=== PATIENT | female | born 1985 | race Caucasian/White ===

== ENCOUNTER 2018-04-14 15:32 | Outpatient (CLI) | payer MEDICAID ==
[~2018-04-14] VITALS: Ht 165.1 cm; Wt 55.8 kg
[2018-04-14 15:13] VITALS: BP 167/80
[2018-04-14 16:19] LABS: BILIRUBIN,URINE NEGATIVE (NEGATIVE); CLARITY,URINE SLIGHTLY CLOUDY; COLOR,URINE YELLOW; GLUCOSE, URINE (UA) NEGATIVE (NEGATIVE); KETONES,URINE 2+ (NEGATIVE); LEUKOCYTE ESTERASE ,URINE 1+ (NEGATIVE); NITRITE,URINE NEGATIVE (NEGATIVE); PH,URINE 7 (5-9); PROTEIN,URINE NEGATIVE (NEGATIVE); UROBILINOGEN,URINE NORMAL (NORMAL)
[2018-04-14 16:20] LABS: WBC,URINE 0-2 /HPF
[2018-04-14 16:57] LABS: AMPHETAMINE SCREEN, URINE NEGATIVE (NEGATIVE); BARBITURATE SCREEN URINE NEGATIVE (NEGATIVE); BENZODIAZEPINES SCREEN URINE POSITIVE (NEGATIVE); CANNABINOID SCREEN, URINE NEGATIVE (NEGATIVE); COCAINE SCREEN URINE NEGATIVE (NEGATIVE); METHADONE STAT NEGATIVE (NEGATIVE); METHAMPHETAMINE SCREEN URINE S NEGATIVE (NEGATIVE); OPIATE SCREEN URINE NEGATIVE (NEGATIVE); OXYCODONE STAT NEGATIVE (NEGATIVE); PROPOXYPHENE STAT NEGATIVE (NEGATIVE); TRICYCLIC ANTIDEPRESSANTS SCRE NEGATIVE (NEGATIVE)
[2018-04-14] MEDS ORDERED: FLU QUADRIvalent (5+ YOA) 2018-2019 (AFLURIA) 0.5 ML IM ONE (17:00)
[2018-04-14] MEDS ORDERED: ALPRAZolam 0.5 MG (XANAX) TAB PO PRN (17:15)
[2018-04-15] MEDS ORDERED: PRENATAL VITAMIN 1 EA TAB PO SCH (07:00)
--- NOTE | 2018-04-20 09:34 | Physician Query-Final Dx ---
TAMRA DEL VALLE 04/20/18 0934: Clinic Account Progress/Dx Physician Query: Please give a diagnosis and include the weeks of gestation if known thank you Date of Service Apr 14, 2018 at 15:32 WAGNER CADENA DO 04/20/18 1025: Clinic Account Progress/Dx DIAGNOSIS: Diagnosis 35 week IUP, Leaking of vaginal fluid TAMRA DEL VALLE Apr 20, 2018 09:34 WAGNER CADENA DO Apr 20, 2018 10:25
== END 2018-04-14 17:12 | disposition home or self-care (01) ==
LOC: RAD 15:32 → LDRP 15:35 → RAD 17:12
PROVIDERS: ATTEND Obstetrics & Gynecology
DX: O99.89 Other specified diseases and conditions complicating pregnancy, childbirth and the puerperium (principal); N89.8 Other specified noninflammatory disorders of vagina; Z3A.35 35 weeks gestation of pregnancy
CPT/HCPCS: 80306; 81000; 87088; 99213

== ENCOUNTER 2018-05-09 10:13 | Inpatient (IN) | payer MEDICAID ==
[~2018-05-09] VITALS: Ht 165.1 cm; Wt 55.8 kg
[2018-05-09] VITALS (49 sets, daily range): BP systolic 106–161; BP diastolic 68–97
[2018-05-09] MEDS ORDERED: D5 LR IV SOLUTION 1,000 ML IV ONE (10:41)
[2018-05-09] MEDS ORDERED: MINERAL OIL CONCENTRATE 99.9% 15 ML UDC TOP PRN (10:45)
[2018-05-09] MEDS ORDERED: LIDOCAINE 1% INJ 20 ML 20 ML VIAL INJ PRN (10:45)
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
--- OUTSIDE RECORDS SUMMARY | 2018-05-09 10:56 | XMS REPORT | CCD ---
Author Author VAUGHN CLIFTON Organization Unknown Address [address] [facility] [address] [place], [place] [address] Care Team Providers Care Home Health Clinical Liaison Name Role Phone GISELLE ZABALA, WAGNER Gambino [...] Start Date Did not wait for treatment [id number] 05/04/2015 Social History Smoking Status Code Start Date End Date Current every day smoker 793102586 Patient Decision Aids Unknown or Not Available. Discharge Instructions You were admitted to [facility] on 05/04/2015 with a principal diagnosis of Did not wait for treatment . You were discharged from [facility] on 05/04/2015. Should you have any [...]
--- OUTSIDE RECORDS SUMMARY | 2018-05-09 10:56 | XMS REPORT | CCD ---
Author Author JENNY CELAYA Unknown Address [address] [facility] [place], [place] [address] Care Team Providers Care Permit Review Assistant Name Role Phone GISELLE ZABALA, WAGNER Maurice Attphyfabiano GISELLE ZABALA, WAGNER Ferreira Vital Signs Unknown or Not Available. Allergies Allergy Code Allergy Type Reaction Status No Known Allergies 0 No known allergies Active Procedures Procedure Code Procedure Type Date CBC W/ AUTO DIFF (RFLX MAN DIFF IF IND) 3022731 SNOMED CT 12/12/2014 COMPREHENSIVE METABOLIC PANEL 081289295 SNOMED CT [address] 12/12/[address] 12/12/[address] 12/12/[address] 12/12/2014 ^CBC W/AUTO DIFF 1236738 SNOMED CT 12/12/2014 History of Immunizations Unknown or Not Available. Problems Unknown or Not Available. Results COMPREHENSIVE METABOLIC PANEL - Collect Date/Time: 12/12/2014 21:25 Test Name Code Test Result Test Units Test Ref Range GLUCOSE 2345-7 90 MG/DL L=70 H=100 SODIUM 2951-2 141 MEQ/L L=135 H=148 POTASSIUM 2823-3 3.4 MEQ/L L=3.5 H=5.3 CHLORIDE 2075-0 105 MEQ/L L=96 H=110 CO2 2028-9 21 MEQ/L L=22 H=29 BUN 3094-0 5 MG/DL L=8 H=22 CREATININE 2160-0 0.7 MG/DL L=0.6 H=1.6 SGOT/AST 1920-8 47 IU/L L=10 H=40 SGPT/ALT 1742-6 26 IU/L L=8 H=54 ALK PHOS 6768-6 113 IU/L L=35 H=115 TOTAL PROTEIN 2885-2 7.6 G/DL L=5.5 H=8.5 ALBUMIN 1751-7 4.1 G/DL L=3.1 H=5.4 TOTAL BILI 1975-2 1.6 MG/DL L=0.0 H=1.5 CALCIUM 95420-7 9.5 MG/DL L=8.2 H=10.6 AGE 29 yrs GFR NonAA 100 GFR AA 121 eGFR >60 N/A eGFR AA* >60 N/A LIPASE - Collect Date/Time: 12/12/2014 21:25 Test Name Code Test Result Test Units Test Ref Range LIPASE 3040-3 13 U/L L=8 H=78 ALCOHOL - Collect Date/Time: 12/12/2014 21:25 Test Name Code Test Result Test Units Test Ref Range ETHANOL 5640-8 <10 MG/DL CBC W/ AUTO DIFF (RFLX MAN DIFF IF IND) - Collect Date/Time: 12/12/2014 21:25 Test Name Code Test Result Test Units Test Ref Range WBC 77045-3 10.2 TH/CMM L=4.5 H=10.8 RBC 789-8 5.42 ML/CMM L=4.20 H=5.40 HGB 718-7 16.9 G/DL L=12.0 H=16.0 HCT 4544-3 48.9 % L=37.0 H=47.0 MCV 90 FL L=81 H=99 MCH 31.2 PG L=27.0 H=33.0 MCHC 34.6 G/DL L=31.0 H=36.0 RDW SD 53 FL L=36 H=50 RDW CV 16.6 % L=0.0 H=14.8 MPV 9.7 FL L=9.3 H=12.5 PLT 777-3 132 TH/CMM L=130 H=440 NRBC# 0.00 TH/CMM L=0.00 H=0.00 NRBC% 0.0 /100WBC L=0.0 H=2.0 %NEUT 78.6 % %LYMP 11.3 % %MONO 9.2 % %EOS 0.7 % %BASO 0.2 % #NEUT 8.00 TH/CMM L=2.10 H=8.20 #LYMP 1.15 TH/CMM L=0.90 H=5.20 #MONO 0.94 TH/CMM L=0.16 H=1.00 #EOS 0.07 TH/CMM L=0.00 H=0.80 #BASO 0.02 TH/CMM L=0.00 H=0.20 MANUAL DIFF NOT IND N/A TEST - Collect Date/Time: 12/12/2014 21:25 Test Name Code Test Result Test Units Test Ref Range TEST 2118-8 NEGATIVE N/A AMYLASE - Collect Date/Time: 12/12/2014 21:25 Test Name Code Test Result Test Units Test Ref Range AMYLASE 1798-8 35 IU/L L=25 H=125 Active Medications Unknown or Not Available. Medications Administered During Visit Unknown or Not Available. Encounters Encounter Diagnosis Diagnosis Code Start Date VOMITING ALONE 15235 12/12/2014 Social History Smoking Status Code Start Date End Date Current every day smoker [id number] Patient Decision Aids Unknown or Not Available. Discharge Instructions You were admitted to [facility] on 12/12/2014 with a principal diagnosis of VOMITING ALONE. You were discharged from [facility] on 12/12/2014. Should you have any questions prior to discharge, please contact a member of your healthcare team. If you have left the hospital and have any questions, please contact your primary care physician. Chief Complaint and Reason For Visit Chief Complaint Date of Onset CHEST PAIN Function Status Unknown or Not Available. Referral/Transition of Care Unknown or Not Available.
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
--- OUTSIDE RECORDS SUMMARY | 2018-05-09 10:58 | XMS REPORT ---
Author Author Modesto Flores [facility] Address [address] [place], [place] [id number] Care Team Providers Care Duplicator Punch Operator Name Role Phone Mdoesto Flores PCP Modesto Flores PreferredProvider Allergies and Adverse Reactions Name Reaction Notes NO KNOWN DRUG ALLERGIES Plan of Treatment Planned Activity Comments Planned Date Planned Time Plan/Goal CMP 08/03/2017 12:00 AM Medications Active Name Start Date Estimated Completion Date SIG Comments alprazolam 0.25 mg oral tablet 07/20/2017 take 1 tablet (0.25 mg) by oral [...] HC BMI BSA BMI Percentile O2 Sat(%) 07/20/2017 10:26:00 AM 102 mmHg 60 mmHg 75 bpm 16 rpm 98.7 F 114 lbs 65 in 18.97 kg/m2 1.54 m2 99 % 02/27/2015 10:59:00 AM 168 mmHg 90 mmHg 155 bpm 22 rpm 100 lbs 65 in 16.6407 kg/m 1.4423 m 98 % 09/10/2014 2:40:00 PM 122 mmHg 60 mmHg 112 bpm 20 rpm 98 F 105 lbs 65 in 17.47 kg/m2 1.48 m2 100 % 07/17/2014 9:59:00 AM 118 mmHg 74 mmHg 77 bpm 18 rpm 96.3 F 107.125 lbs 65 in 17.8263 kg/m 1.4928 m 100 % 10/05/2013 9:52:00 AM 123 mmHg 68 mmHg 102 bpm 96.4 F 114 lbs 65 in 18.97 kg/m2 1.54 m2 10/04/2013 10:57:00 AM 111 mmHg 75 mmHg 86 bpm 18 rpm 97.6 F 112 lbs 65 in 18.6376 kg/m 1.5264 m 05/21/2010 8:56:00 AM 121 mmHg 81 mmHg 84 bpm 99 F 106.375 lbs 01/05/2010 4:17:00 PM 102 mmHg 74 mmHg 83 bpm 98.9 F 108.5 lbs 65 in 18.0552 kg/m 1.5024 m Social History Name Description Comments denies alcohol use Tobacco Current every day smoker trying to stop History of Procedures Date Ordered Description Order Status 02/27/2015 12:00 AM Psychiatry Consult Reviewed 02/27/2015 12:00 AM RADIOLOGIC EXAMINATION KNEE 3 VIEWS Reviewed 10/04/2013 12:00 AM URINE TEST Reviewed [...] ABO/Rh Type A Positive Antibody Screen-Gel Negative History Of Immunizations Not available. History of [...] 10:28AM Alcohol abuse Jul 20 2017 10:28AM Payers Insurance Name Company Name Plan Name Plan Number Policy Number Policy Group Number Start Date [place] Medical Assistance [facility] Pro [id number] N/A Childrens [facility] Childrens [facility] [id number] N/A History of Encounters Visit Date Visit Type Provider 07/20/2017 Office visit Modesto Flores DO 07/08/2017 [facility] Ej Rivera MD 05/09/2015 [facility] Prosper Cortes MD 02/27/2015 Office visit Modesto Flores DO 12/12/2014 [facility] Prosper Cortes MD 09/10/2014 Office visit 09/10/2014 Office visit Modesto Flores DO 07/17/2014 Office visit Modesto Flores DO 07/10/2014 [facility] Prosper Cortes MD 10/05/2013 Office visit Jet Biggs MD 10/04/2013 Voided Jet Biggs MD 06/24/2012 Hospital Prosper Cortes MD 05/21/2010 Office visit Fly Davenport MD 03/23/2010 [facility] Fly Davenport MD 03/10/2010 Office visit Fly Davenport MD 03/02/2010 Office visit Fly Davenport MD 02/25/2010 Office visit Fly Davenport MD 02/23/2010 Office visit Fly Davenport MD 01/27/2010 Office visit Fly Davenport MD 01/12/2010 Office visit Fly Davenport MD 01/05/2010 Office visit Fly Davenport MD
--- OUTSIDE RECORDS SUMMARY | 2018-05-09 10:58 | XMS REPORT ---
Author Author Modesto Flores [facility] Address [address] [place], [place] [id number] Care Team Providers Care Acoustical Carpenter Name Role Phone Modesto Flores PCP Modesto Flores PreferredProvider Allergies and Adverse Reactions Name Reaction Notes NO KNOWN DRUG ALLERGIES Plan of Treatment Not available. Medications Active Name Start Date Estimated Completion Date SIG Comments sertraline 50 mg oral tablet 10/03/2017 take 1 tablet by oral route daily alprazolam 0.5 mg oral tablet 11/29/2017 take 1 tablet (0.5 mg) by oral route 2 times per day as needed Name Start Date Expiration Date SIG Comments Neevo DHA 27 mg iron-400 mcg-1 mg-250 mg oral capsule 01/27/2010 01/22/2011 take 1 capsule by oral route daily for 30 days Depo-Provera 150 mg/mL intramuscular suspension 05/21/2010 05/25/2010 inject 1 milliliter (150 mg) by intramuscular route every 3 months for 1 day clindamycin HCl 300 mg oral capsule 10/14/2017 10/21/2017 take 1 capsule (300 mg) by oral route 2 times per day for 7 days amoxicillin-pot clavulanate 875-125 mg oral tablet 10/20/2017 10/27/2017 take 1 tablet by oral route every 12 hours for 7 days Discontinued Name Start Date Discontinued Date SIG [...] HC BMI BSA BMI Percentile O2 Sat(%) 10/20/2017 10:12:00 AM 110 mmHg 62 mmHg 88 bpm 20 rpm 98.8 F 116 lbs 65 in 19.3032 kg/m 1.5534 m 100 % 09/07/2017 8:50:00 AM 116 mmHg 76 mmHg 94 bpm 20 rpm 98.1 F 117 lbs 65 in 19.47 kg/m2 1.56 m2 98 % 08/18/2017 8:50:00 AM 122 mmHg 80 mmHg [...] 2017 10:28AM Anxiety Aug 18 2017 8:52AM Anxiety Disorder Sep 07 2017 8:52AM Herpes zoster without complication Sep 07 2017 8:52AM Dental abscess Oct 20 2017 10:14AM Payers Insurance Name Company Name Plan Name Plan Number Policy Number Policy Group Number Start Date Amerigroup [place] State [place] Amerigroup [place] Plan [id number] N/A [place] Medical Assistance [facility] Medical [facility] Prog [id number] N/A Childrens [facility] Childrens [facility] [place] [id number] N/A [employer] - [facility] - [place] State Plan Amerigroup - [facility] State Plan [id number] N/A History of Encounters Visit Date Visit Type Provider 10/20/2017 Office visit Modesto Flores DO 09/07/2017 Office visit Modetso Flores DO 08/18/2017 Office visit Modesto Flores DO 07/20/2017 Office visit Modesto Flores DO 07/08/2017 [facility] Ej Rivera MD 07/06/2017 Hospital Prosper Cortes MD 05/09/2015 Hospital Prosper Cortes MD 02/27/2015 Office visit Modesto Flores DO 12/12/2014 Hospital Prosper Cortes MD 09/10/2014 Office visit 09/10/2014 Office visit Modesto Flores DO 07/17/2014 Office visit Modesto Flores DO 07/10/2014 Can Cortes MD 10/05/2013 Office visit Jet Biggs MD 10/04/2013 Voided Jet Biggs MD 06/24/2012 [facility] Prosper Cortes MD 05/21/2010 Office visit Fly Davenport MD 03/23/2010 [facility] Fly Davenport MD 03/10/2010 Office visit Fly Davenport MD 03/02/2010 Office visit Fly Davenport MD 02/25/2010 Office visit Fly Davenport MD 02/23/2010 Office visit Fly Davenport MD 01/27/2010 Office visit Fly Davenport MD 01/12/2010 Office visit Fly Davenport MD 01/05/2010 Office visit Fly Davenport MD
--- OUTSIDE RECORDS SUMMARY | 2018-05-09 10:59 | XMS REPORT ---
Author Author Modesto Flores [facility] Address [address] [place], [place] [id number] Care Team Providers Care Nuclear Reactor Operator Name Role Phone Modesto Flores PCP Modesto Flores PreferredProvider Allergies and Adverse Reactions Name Reaction Notes NO KNOWN DRUG ALLERGIES Plan of Treatment Not available. Medications Active Name Start Date Estimated Completion Date SIG Comments sertraline 50 mg oral tablet 10/03/2017 take 1 tablet by oral route daily alprazolam 0.5 mg oral tablet 11/04/2017 take 1 tablet (0.5 mg) by oral [...] Number Policy Group Number Start Date [employer] [place] [place] [id number] N/A [place] Medical Assistance [facility] Prog [id number] N/A Children[facility] [id number] N/A Amer[employer] - [facility] - [place] State Plan Amerigroup - [facility] State Plan [id number] N/A History of Encounters Visit Date Visit Type Provider 10/20/2017 Office visit Modesto Flores DO 09/07/2017 Office visit Modesto Flores DO 08/18/2017 Office visit Modesto Flores DO 07/20/2017 Office visit Modesto Flores DO 07/08/2017 [facility] Ej Rivera MD 07/06/2017 Hospital Prosper Cortes MD 05/09/2015 Hospital rPosper Cortes MD 02/27/2015 Office visit Modesto Flores DO 12/12/2014 Hospital Prosper Cortes MD 09/10/2014 Office visit 09/10/2014 Office visit Modesto Flores DO 07/17/2014 Office visit Modesto Flores DO 07/10/2014 Can Cortes MD 10/05/2013 Office visit Jet Biggs MD 10/04/2013 Voided Jet Biggs MD 06/24/2012 [facility] Prosper Cortes MD 05/21/2010 Office visit Fly Davenport MD 03/23/2010 [facility] Fly Davenport MD 03/10/2010 Office visit Fly Davenport MD 03/02/2010 Office visit Fly Davenport MD 02/25/2010 Office visit Fly Davenport MD 02/23/2010 Office visit Fly Davenport MD 01/27/2010 Office visit Fly Davenport MD 01/12/2010 Office visit Fly Davenport MD 01/05/2010 Office visit Fly Davenport MD
--- OUTSIDE RECORDS SUMMARY | 2018-05-09 10:59 | XMS REPORT ---
Author Author Modesto Flores [facility] Address [address] [place], [place] [id number] Care Team Providers Care Air Bag Curer Name Role Phone Modesto Flores PCP Modesto Flores PreferredProvider Allergies and Adverse Reactions Name Reaction Notes NO KNOWN DRUG ALLERGIES Plan of Treatment Not available. Medications Active Name Start Date Estimated Completion Date SIG Comments sertraline 50 mg oral tablet 10/03/2017 take 1 tablet by oral route daily alprazolam 0.5 mg oral tablet 10/03/2017 take 1 tablet (0.5 mg) by oral route 2 times per day as needed clindamycin HCl 300 mg oral capsule 10/14/2017 10/21/2017 take 1 capsule (300 mg) by oral route 2 times per day for 7 days Name Start Date Expiration Date SIG Comments [...] HC BMI BSA BMI Percentile O2 Sat(%) 09/07/2017 8:50:00 AM 116 mmHg 76 mmHg 94 bpm 20 rpm 98.1 F 117 lbs 65 in 19.4696 kg/m 1.5601 m 98 % 08/18/2017 8:50:00 AM 122 mmHg [...] zoster without complication Sep 07 2017 8:52AM Payers Insurance Name Company Name Plan Name Plan Number Policy Number Policy Group Number Start Date Amerigroup [place] State Plan Amerigroup [place] State Plan [id number] N/A [place] Medical Assistance Program [place] Prog [id number] N/A [facility] [id number] N/A Amer[employer] - [facility] - [place] State Plan Amerigroup - [facility] State [facility] [id number] N/A History of Encounters Visit Date Visit Type Provider 09/07/2017 Office visit Modesto Flores DO 08/18/2017 Office visit Modesto Flores DO 07/20/2017 Office visit Modesto Flores DO 07/08/2017 [facility] Ej Rivera MD 07/06/2017 Hospital Prospre Cortes MD 05/09/2015 [facility] Prosper Cortes MD 02/27/2015 Office visit Modesto Flores DO 12/12/2014 [facility] Prosper Cortes MD 09/10/2014 Office visit 09/10/2014 Office visit Modesto Flores DO 07/17/2014 Office visit Modesto Flores DO 07/10/2014 Hospital Prosper Cortes MD 10/05/2013 Office visit Jet Biggs MD 10/04/2013 Voided Jet Biggs MD 06/24/2012 Hospital Prosper Cortes MD 05/21/2010 Office visit Fly Davenport MD 03/23/2010 [facility] Fly Davenport MD 03/10/2010 Office visit Fly Davenport MD 03/02/2010 Office visit Fly Davenport MD 02/25/2010 Office visit Fly Davenport MD 02/23/2010 Office visit Fly Davenport MD 01/27/2010 Office visit Fly Davenport MD 01/12/2010 Office visit Fly Davenport MD 01/05/2010 Office visit Fly Davenport MD
--- OUTSIDE RECORDS SUMMARY | 2018-05-09 11:00 | XMS REPORT ---
Author Author Modesto Flores [facility] Address [address] [place], [place] [id number] Care Team Providers Care Straw Hat Plunger Operator Name Role Phone Modesto Flores PCP Modesto Flores PreferredProvider Allergies and Adverse Reactions Name Reaction Notes NO KNOWN DRUG ALLERGIES Plan of Treatment Not available. Medications Active Name Start Date Estimated Completion Date SIG Comments sertraline 50 mg oral tablet 09/07/2017 take 1/2 tablet (25 mg) by oral route once daily for 6 days then 1 tablet daily alprazolam 0.5 mg oral tablet 09/07/2017 take 1 tablet (0.5 mg) by oral [...] Number Policy Group Number Start Date [employer] [place] State [facility] [id number] N/A [place] Medical Assistance Program [place] Prog [id number] N/A Childrens [facility] Childrens [facility] [id number] N/A [employer] - [facility] - [place] State [facility] State [facility] [id number] N/A History of Encounters Visit Date Visit Type Provider 09/07/2017 Office visit Modesto Flores DO 08/18/2017 Office visit Modesto Flores DO 07/20/2017 Office visit Modesto Flores DO 07/08/2017 [facility] Ej Rivera MD 07/06/2017 [facility] Prosper Cortes MD 05/09/2015 [facility] Prosper Cortes MD 02/27/2015 Office visit Modesto Flores DO 12/12/2014 Hospital Prosper Cortes MD 09/10/2014 Office visit 09/10/2014 Office visit Modesto Flores DO 07/17/2014 Office visit Modesto Flores DO 07/10/2014 Hospital Prosper Cortes MD 10/05/2013 Office visit Jet Biggs MD 10/04/2013 Voided Jet Biggs MD 06/24/2012 Hospital Prosper Cortes MD 05/21/2010 Office visit Fly Davenport MD 03/23/2010 Hospital Fly Davenport MD 03/10/2010 Office visit Fly Davenport MD 03/02/2010 Office visit Fly Davenport MD 02/25/2010 Office visit Fly Davenport MD 02/23/2010 Office visit Fly Davenport MD 01/27/2010 Office visit Fly Davenport MD 01/12/2010 Office visit Fly Davenport MD 01/05/2010 Office visit Fly Davenport MD
--- OUTSIDE RECORDS SUMMARY | 2018-05-09 11:00 | XMS REPORT ---
Author Author Modesto Flores [facility] Address [address] [place], [place] [address] Care Team Providers Care Clay Dry Press Mixer Operator Name Role Phone Modesto Flores PCP [...] 08/03/2017 12:00 AM COMPREHEN METABOLIC PANEL Reviewed 10/04/2013 [...] AA 102 eGFR >60 mL/min/1.73meGFR AA* >60 History Of Immunizations Not [...] Policy Number Policy Group Number Start Date [place] Medical Assistance [facility] Medical [place] [facility] Prog [id number] N/[facility] [id number] N/A History of Encounters Visit Date Visit Type Provider 07/20/2017 Office visit Modesto Flores DO 07/08/2017 Hospital Ej Rivera MD 07/06/2017 Can Cortes MD 05/09/2015 Can Cortes MD 02/27/2015 Office visit Modesto Flores DO 12/12/2014 Can Cortes MD 09/10/2014 Office visit 09/10/2014 Office visit Modesto Flores DO 07/17/2014 Office visit Modesto Flores DO 07/10/2014 Can Cortes MD 10/05/2013 Office visit Jet Biggs MD 10/04/2013 Voided eJt Biggs MD 06/24/2012 [facility] Prosper Cortes MD 05/21/2010 Office visit Fly Davenport MD 03/23/2010 [facility] Fly Davenport MD 03/10/2010 Office visit Fly Davenport MD 03/02/2010 Office visit Fly Davenport MD 02/25/2010 Office visit Fly Davenport MD 02/23/2010 Office visit Fly Davenport MD 01/27/2010 Office visit Fly Davenport MD 01/12/2010 Office visit Fly Davenport MD 01/05/2010 Office visit Fly Davenport MD
--- OUTSIDE RECORDS SUMMARY | 2018-05-09 11:00 | XMS REPORT ---
Author Author Modesto Flores [facility] Address [address] [place], [place] [address] Care Team Providers Care Cupola Hoist Operator Name Role Phone Modesto Flores PCP [...] route 2 times per day as needed amoxicillin-pot clavulanate 875-125 mg oral tablet 10/20/2017 10/27/2017 take 1 tablet by oral route every 12 hours for 7 days Name Start Date Expiration [...] 2 times per day for 7 days Discontinued Name Start Date [...] Number Policy Group Number Start Date [employer] [place] [employer] [place] [id number] N/A [place] Medical Assistance [facility] Medical [facility] Prog [id number] N/A Childrens [facility] Childrens [facility] [id number] N/A [employer] - [facility] [place] State Plan [employer] - [facility] State Plan [id number] N/A History of Encounters Visit Date Visit Type Provider 10/20/2017 Office visit Modesto Flores DO 09/07/2017 Office visit Modesto Flores DO 08/18/2017 Office visit Modesto Flores DO 07/20/2017 Office visit Modesto Flores DO 07/08/2017 [facility] Ej Rivera MD 07/06/2017 Hospital Prosper Cortes MD 05/09/2015 Hospital Prosper Cortes MD 02/27/2015 Office visit Modesto Flores DO 12/12/2014 Hospital Prosper Cortes MD 09/10/2014 Office visit 09/10/2014 Office visit Modesto Flores DO 07/17/2014 Office visit Modesto Flores DO 07/10/2014 Can Cortes MD 10/05/2013 Office visit Jet Biggs MD 10/04/2013 Voided Jet Biggs MD 06/24/2012 [facility] Prosper Cortes MD 05/21/2010 Office visit Fly Davenport MD 03/23/2010 [facility] Fly Davenport MD 03/10/2010 Office visit Fly Davenport MD 03/02/2010 Office visit Fly Davenport MD 02/25/2010 Office visit Fly Davenport MD 02/23/2010 Office visit Fly Davenport MD 01/27/2010 Office visit Fly Davenport MD 01/12/2010 Office visit Fly Davenport MD 01/05/2010 Office visit Fly Davenport MD
--- OUTSIDE RECORDS SUMMARY | 2018-05-09 11:01 | XMS REPORT ---
Author Author Modesto Flores [facility] Address [address] [place], [place] [address] Care Team Providers Care Voicer Name Role Phone Modesto Flores PCP Modesto [...] Plan [employer] - [facility] [place] State Plan [id number] N/A [place] Medical Assistance [facility] Medical Assistance Pro [id number] N/A [employer] [place] [facility] [id number] N/A History of Encounters Visit Date Visit [...] 05/21/2010 Office visit Fly Davenport MD 03/23/2010 [facility] Fly Davenport MD 03/10/2010 Office visit Fly Davenport MD 03/02/2010 Office visit Fly Davenport MD 02/25/2010 Office visit Fly Davenport MD 02/23/2010 Office visit Fly Davenport MD 01/27/2010 Office visit Fly Davenport MD 01/12/2010 Office visit Fly Davenport MD 01/05/2010 Office visit Fly Davenport MD
--- OUTSIDE RECORDS SUMMARY | 2018-05-09 11:02 | XMS REPORT ---
Author Author Modesto Flores [facility] Address [address] [place], [place] [address] Care Team Providers Care Translational Specialist Name Role Phone Modesto Flores PCP Modesto [...] Number Policy Group Number Start Date [employer] [place] [employer] [place] [id number] N/A [place] Medical Assistance [facility] Prog [id number] N/A Childrens [facility] [id number] N/A [employer] - [facility] - [place] State Plan [employer] - [facility] [place] State [facility] [id number] N/A History of Encounters Visit Date Visit Type Provider 09/07/2017 Office visit Modesto Flores DO 08/18/2017 Office visit Modesto Flores DO 07/20/2017 Office visit Modesto Flores DO 07/08/2017 [facility] Ej Rivera MD 07/06/2017 Hospital Prosper Cortes MD 05/09/2015 [facility] Prosper Cortes MD 02/27/2015 Office visit [...]
--- OUTSIDE RECORDS SUMMARY | 2018-05-09 11:03 | XMS REPORT ---
Author Author Modesto Flores [facility] Address [address] [place], [place] [address] Care Team Providers Care Energy Analyst Name Role Phone Modesto Flores PCP Unavailable Allergies and Adverse Reactions Name Reaction Notes NO KNOWN DRUG ALLERGIES Plan of Treatment Planned Activity Comments Planned Date Planned Time Plan/Goal LOWER EXTREMITY STUDY 09/10/2014 12:00 AM Medications Active Name Start Date Estimated Completion Date SIG Comments zolpidem 5 mg oral tablet 02/27/2015 take 1 tablet by oral route once a day (at bedtime) as needed clonazepam 1 mg oral tablet 02/27/2015 take 1 tablet (1 mg) by oral route 3 times per day as needed for anxiety Name Start Date Expiration Date SIG Comments [...] "ran out of it, it didn't work" Problem List Description Status Onset Anxiety Active 09/14/2014 Alcohol abuse Active 09/14/2014 Vital Signs Date Time BP-Sys(mm[Hg] BP-Nichole(mm[Hg]) HR(bpm) RR(rpm) Temp WT HT HC BMI BSA BMI Percentile O2 Sat(%) 02/27/2015 10:59:00 AM 168 mmHg 90 mmHg [...] Ordered Description Order Status 02/27/2015 12:00 AM RADIOLOGIC EXAMINATION KNEE 3 VIEWS Reviewed 10/04/2013 12:00 AM URINE TEST Reviewed 10/04/2013 12:00 AM HIV-1ANTIBODY Reviewed 10/04/2013 12:00 AM OBSTETRIC PANEL Returned 10/04/2013 12:00 AM URINALYSIS AUTO W/SCOPE Returned 10/05/2013 12:00 AM N.GONORRHOEAE DNA AMP PROB Returned 10/05/2013 12:00 AM CHLAMYDIA CULTURE Returned 10/05/2013 12:00 AM OBSTETRIC PANEL Returned 10/05/2013 12:00 AM HIV-1ANTIBODY Returned 10/05/2013 12:00 AM URINALYSIS AUTO W/SCOPE Returned 10/05/2013 12:00 AM US, preg, real time w image documentation, transvag - In Office Returned 10/05/2013 12:00 AM CYTOPATH C/V THIN LAYER [...] AM SPECIMEN HANDLING OFFICE-LAB Reviewed Results Summary Data and Description Results 01/06/2010 2:45 PM RUBELLA 31.0 IU/mLWBC 11.8 PLT 133 %NEUT 76.10 %%LYMP 17.40 %%MONO 5.0 %%EOS 1.40 %%BASO 0.10 %#NEUT 8.95 #LYMP 2.04 #MONO 0.59 #EOS 0.16 # BASO 0.01 RBC 3.64 HGB 11.30 g/dLHCT 32.90 %MCV 90.0 fLMCH 31.0 pgMCHC 34.30 g/ dLRDW CV 13.70 %MPV 10.70 fLCOLOR YELLOW APPEARANCE HAZY SPEC GRAV 1.015 pH 8.5 PROTEIN NEGATIVE GLUCOSE NEGATIVE KETONE NEGATIVE BILIRUBIN NEGATIVE BLOOD NEGATIVE NITRITE NEGATIVE LEUK SCREEN NEGATIVE CASTS/LPF NEGATIVE CRYSTALS NEGATIVE MUCOUS THRDS 1+ BACTERIA 1+ EPITH CELLS 2++ SQUAMOUS TRICHOMONAS NEGATIVE YEAST NEGATIVE 10/04/2013 12:15 PM WBC 9.9 RBC 4.39 HGB 13.70 g/dLHCT 38.90 %MCV 89.0 fLMCH 31.20 pgMCHC 35.20 g/dLRDW CV 13.50 %MPV 10.50 fLPLT 173 %NEUT 71.0 %%LYMP 23.0 %%MONO 4.20 %%EOS 1.60 %%BASO 0.20 %#NEUT 6.99 #LYMP 2.27 #MONO 0.41 #EOS 0.16 # BASO 0.02 HIV AG/AB COMBO 0.09 COLOR YELLOW APPEARANCE HAZY SPEC GRAV 1.020 pH 6.0 PROTEIN NEGATIVE GLUCOSE NEGATIVE KETONE NEGATIVE BILIRUBIN NEGATIVE BLOOD NEGATIVE NITRITE NEGATIVE LEUK SCREEN NEGATIVE CASTS/LPF NEGATIVE CRYSTALS NEGATIVE MUCOUS THRDS FEW BACTERIA NEGATIVE EPITH CELLS 1+ SQUAMOUS TRICHOMONAS NEGATIVE YEAST NEGATIVE ABO/Rh Type A Positive RPR Non Reactive Rubella Antibodies, IgG 3.33 IndexHBsAg Screen Negative History Of Immunizations Not available. History of Past Illness Name Date of Onset Comments *No known medical problems Jan 05 2010 4:30PM test confirmed positive [...] 2015 11:01AM Anxiety Feb 27 2015 11:01AM Payers Insurance Name Company Name Plan Name Plan Number Policy Number Policy Group Number Start Date [place] Medical Assistance [facility] Medical [facility] Prog [id number] N[facility]A [facility] [id number] N/A History of Encounters Visit Date Visit Type Provider 02/27/2015 Office visit Modesto Flores DO 12/12/2014 Hospital Prosper Cortes MD 09/10/2014 Office visit Modesto Sandra DO 07/17/2014 Office visit Modesto Flores DO 07/10/2014 Hospital Prosper Cortes MD 10/05/2013 Office visit Jet Biggs MD 10/04/2013 Voided Jet Biggs MD 06/24/2012 [facility] Prosper Cortes MD 05/21/2010 Office visit Fly Davenport MD 03/23/2010 [facility] Fly Davenport MD 03/10/2010 Office visit Fly Davenport MD 03/02/2010 Office visit Fly Davenport MD 02/25/2010 Office visit Fly Davenport MD 02/23/2010 Office visit Fly Davenport MD 01/27/2010 Office visit Fly Davenport MD 01/12/2010 Office visit Fly Davenport MD 01/05/2010 Office visit Fly Davenport MD
--- OUTSIDE RECORDS SUMMARY | 2018-05-09 11:05 | XMS REPORT ---
Author Author MICHAEL JETT Organization [employer] Address Unknown Phone Unavailable Care Team Providers Care Mobile Homes Repairer Name Role Phone MICHAEL JETT CP Unavailable Allergies, Adverse Reactions, Alerts Substance Reaction Event Type N.K.D.A. Info Not Available Non Drug Allergy Problems Problem Type Condition Code Onset Dates Condition Status Assessment Tinea versicolor B36.0 Active Assessment Generalized anxiety disorder F41.1 Active Medications Medication Code System Code Instructions Start Date End Date Status Dosage Terbinafine [facility] [address]-40 1 % Externally 2 times a day Feb 03, 2016 as directed Fluconazole [facility] [address]-53 200 mg Orally Once a day Feb 03, 2016 Mar 04, 2016 1 tablet Paxil [facility] [address]-43 40 mg Orally Once a day Feb 03, 2016 1 tablet in the morning Vistaril [facility] [address]-83 25 MG Orally every 8 hrs Feb 03, 2016 1 capsule as needed Xanax [facility] [address]-73 0.5 MG Orally Once a day 1 tablet Procedures Procedure Coding System Code Date Office Visit, Est Pt., Level 3 CPT-4 43479 Feb 03, 2016 Vital Signs Date/Time: Feb 03, 2016 Cardiac Monitoring Heart Rate 120 bpm Weight 111 lbs Height 65 in BMI 18.47 Index Blood Pressure Diastolic 62 mmHg Blood Pressure Systolic 108 mmHg Results No Known Results Summary Purpose [employer] Submission
--- OUTSIDE RECORDS SUMMARY | 2018-05-09 11:05 | XMS REPORT | Continuity of Care Document ---
Author Author [facility] Organization [facility] Address Unknown Phone Unavailable Allergies Active Description Code Type Severity Reaction Onset Reported/Identified Relationship to Patient Clinical Status Yes No Known Allergies [id number] N /A N/A Yes No Known Allergies No Known Allergies Drug Allergy Unknown N/A 2013 Yes No Known Drug Allergies [id number] Drug Allergy Unknown N/A 04/14/2018 Medications There is no data. Problems There is no data. Procedures There is no data. Results Test Result Range CBC W/DIFF - 12/01/13 00:33 COMMENT REVIEWED GRANULOCYTE # 15.6 k/cumm 2.0-9.0 GRANULOCYTE % 88 % 50-75 LYMPHOCYTE # 1.4 k/cumm 1.0-4.0 LYMPHOCYTE % 8 % 20-30 MEAN CELL HGB 32.2 pg 27.0-33.0 MEAN CELL HGB CONCENTRATION 34.7 g/dL 32.0-37.0 MEAN CELL VOLUME 92.8 fl 80.0-100.0 MONOCYTE # 0.7 k/cumm 0.1-1.0 MONOCYTE % 4 % 4-6 RED BLOOD CELL 3.07 m/cumm 4.00-6.00 RED CELL DISTRIBUTION WIDTH 13.9 % 11.0-15.6 WHITE BLOOD CELL 17.8 k/cumm 5.0-10.0 HEMOGLOBIN 9.9 gm/dL 12.0-16.0 HEMATOCRIT 28.5 % 37.0-47.0 PLATELET COUNT 139 k/cumm 150-400 CHEM/HEM PROFILE-BEDSIDE - 12/01/13 00:36 POTASSIUM 3.4 mmol/L 3.5-5.3 METHOD Bedside ANION GAP 19 mmol/L 10-20 METHOD Bedside GLUCOSE 112 mg/dL 70-99 BLOOD UREA NITROGEN < 3 mg/dL 7-20 CREATININE 0.8 mg/dL 0.6-1.0 HEMOGLOBIN 9.5 gm/dL 12.0-16.0 HEMATOCRIT 28.0 % 37.0-47.0 SODIUM 134 mmol/L 135-148 CHLORIDE 101 mmol/L 98-110 CARBON DIOXIDE 19 mmol/L 21-32 CALCIUM IONIZED 4.8 mg/dL 4.5-5.3 CHEM/HEM PROFILE-BEDSIDE - 12/01/13 04:13 POTASSIUM 3.3 mmol/L 3.5-5.3 METHOD Bedside ANION GAP 18 mmol/L 10-20 METHOD Bedside GLUCOSE 108 mg/dL 70-99 BLOOD UREA NITROGEN < 3 mg/dL 7-20 CREATININE 0.7 mg/dL 0.6-1.0 HEMOGLOBIN 8.2 gm/dL 12.0-16.0 HEMATOCRIT 24.0 % 37.0-47.0 SODIUM 136 mmol/L 135-148 CHLORIDE 105 mmol/L 98-110 CARBON DIOXIDE 17 mmol/L 21-32 CALCIUM IONIZED 4.7 mg/dL 4.5-5.3 HEMOGLOBIN - 12/01/13 04:15 MEAN CELL VOLUME 93.2 fl 80.0-100.0 HEMOGLOBIN 8.9 gm/dL 12.0-16.0 Hepatitis Panel (4) - 07/06/17 16:45 HBsAg Screen Negative Negative Hep A Ab, IgM Negative Negative Hep B Core Ab, IgM Negative Negative Hep C Virus Ab <0.1 s/co ratio 0.0-0.9 Platelet Antibody Profile - 04/03/18 11:20 HLA Class 1 Antibody Positive Negative IIb/IIIa Antibody Positive Negative Ib/IX Antibody Negative Negative Ia/IIa Antibody Negative Negative Glycoprotein IV Antibody Negative Negative Complete urinalysis with reflex to culture - 04/14/18 16:00 Urine color determination YELLOW NRG Urine clarity determination SLIGHTLY CLOUDY NRG Urine pH measurement by test strip 7 5-9 Specific gravity of urine by test strip 1.010 1.016- 1.022 Urine protein assay by test strip, semi-quantitative NEGATIVE NEGATIVE Urine glucose detection by automated test strip NEGATIVE NEGATIVE Erythrocytes detection in urine sediment by light microscopy NEGATIVE NEGATIVE Urine ketones detection by automated test strip 2+ NEGATIVE Urine nitrite detection by test strip NEGATIVE NEGATIVE Urine total bilirubin detection by test strip NEGATIVE NEGATIVE Urine urobilinogen measurement by automated test strip (mass/volume) NORMAL NORMAL Urine leukocyte esterase detection by dipstick 1+ NEGATIVE Automated urine sediment erythrocyte count by microscopy (number/high power field) NONE NRG Automated urine sediment leukocyte count by microscopy (number/high power field ) [HPF] NRG Bacteria detection in urine sediment by light microscopy NONE NRG Squamous epithelial cells detection in urine sediment by light microscopy 5-10 NRG Crystals detection in urine sediment by light microscopy NONE NRG Casts detection in urine sediment by light microscopy NONE NRG Mucus detection in urine sediment by light microscopy NEGATIVE NRG Complete urinalysis with reflex to culture NO NRG Urine drug screening test - 04/14/18 16:00 Urine phencyclidine detection by screening method NEGATIVE NEGATIVE Urine benzodiazepines detection by screening method POSITIVE NEGATIVE Urine cocaine detection NEGATIVE NEGATIVE Urine amphetamines detection by screening method NEGATIVE NEGATIVE Urine methamphetamine detection by screening method NEGATIVE NEGATIVE Urine cannabinoids detection by screening method NEGATIVE NEGATIVE Urine opiates detection by screening method NEGATIVE NEGATIVE Urine barbiturates detection NEGATIVE NEGATIVE Screening urine tricyclic antidepressants detection NEGATIVE NEGATIVE Urine methadone detection by screening method NEGATIVE NEGATIVE Urine oxycodone detection NEGATIVE NEGATIVE Urine propoxyphene detection NEGATIVE NEGATIVE Bacterial urine culture - 04/14/18 16:00 Bacterial urine culture SEE REPORT NRG COLONY COUNT . NRG Encounters ACCT No. Visit Date/Time Discharge Status Pt. Type Provider Facility Loc./Unit Complaint [id number] 10/20/2017 11:08:56 10/20/2017 23:59:59 CLS Outpatient Modesto Flores [id number] 09/07/2017 09:46:16 09/07/2017 23:59:59 CLS Outpatient Modesto Flores [id number] 08/18/2017 09:55:53 08/18/2017 23:59:59 CLS Outpatient Modesto Flores [id number] 07/27/2017 16:59:24 07/27/2017 23:59:59 CLS Outpatient Prosper Cortes [id number] 07/20/2017 11:20:01 07/20/2017 23:59:59 CLS Outpatient Modesto Flores [id number] 07/13/2017 14:57:32 07/13/2017 23:59:59 CLS Outpatient Ej Rivera [id number] 08/09/2015 10:57:03 08/09/2015 23:59:59 CLS Outpatient Prosper Cortes [id number] 02/27/2015 11:53:13 02/27/2015 23:59:59 CLS Outpatient Modesto Flores [id number] 02/10/2015 08:35:22 02/10/2015 23:59:59 CLS Outpatient Prosper Cortes [id number] 09/27/2014 11:35:09 09/27/2014 23:59:59 CLS Outpatient Prosper Cortes [id number] 09/10/2014 15:28:00 09/10/2014 23:59:59 CLS Outpatient Modesto Flores [id number] 10/05/2013 10:44:25 10/05/2013 23:59:59 CLS Outpatient Jet Biggs Josafat [id number] 10/04/2013 15:39:53 10/04/2013 23:59:59 CLS Outpatient DianJet Josafat [id number] 08/29/2017 11:20:00 08/29/2017 23:59:59 CLS Outpatient JOHN EUGENE LAC [id number] 11/30/2013 23:01:00 12/01/2013 04:55:00 DIS Emergency Ida ZABALA, [facility] WRahulZION [id number] 04/18/2018 07:55:06 Document Registration [id number] 04/03/2018 10:39:42 Document Registration [id number] 03/16/2018 00:09:32 Document Registration [id number] 03/13/2018 16:19:51 Document Registration [id number] 02/08/2018 17:46:33 Document Registration [id number] 12/27/2017 13:15:00 Document Registration [id number] 12/27/2017 12:38:42 Document Registration [id number] 08/19/2017 13:56:42 Document Registration [id number] 08/03/2017 15:28:46 Document Registration [id number] 07/19/2017 13:31:19 Document Registration [id number] 07/06/2017 13:16:15 Document Registration [id number] 07/06/2017 13:07:02 Document Registration [id number] 07/08/2017 19:06:00 Document Registration [id number] 04/05/2018 18:06:00 Document Registration [id number] 04/14/2018 15:32:00 04/14/2018 17:12:00 DIS Outpatient WAGNER CADENA DO [facility] WSo CONTRACTIONS
--- OUTSIDE RECORDS SUMMARY | 2018-05-09 11:05 | XMS REPORT ---
Author Author Modesto Flores [facility] Address [address] [place], [place] [address] Care Team Providers Care Automotive Technology Instructor Name Role Phone Modesto Flores PCP Modesto [...] Number Policy Group Number Start Date [employer] [place] [facility] [id number] N/A [place] Medical Assistance Program [place] Medical Assistance Prog [id number] N/A [facility] [id number] N/A [employer] - [facility] - [place] State [facility] [place] State [facility] [id number] N/A History of Encounters Visit Date Visit Type Provider 09/07/2017 Office visit Modesto Flores DO 08/18/2017 Office visit Modesto Flores DO 07/20/2017 Office visit Modesto Flores DO 07/08/2017 [facility] Ej Rivera MD 07/06/2017 [facility] Prosper Cortes MD 05/09/2015 [facility] Prosper Cortes MD 02/27/2015 Office visit Modesto [...]
--- OUTSIDE RECORDS SUMMARY | 2018-05-09 11:05 | XMS REPORT ---
Author Author PATTIE RODRIGUEZ [facility] [employer] Address Unknown Phone Unavailable Care Team Providers Care Staff Midwife Name Role Phone PATTIE RODRIGUEZ CP Unavailable Allergies No Known Allergies Problems No Known Problems Medications No Known Medications Results No Known Results Summary Purpose [employer]Clinical[employer] Submission
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
[2018-05-09] MEDS: D5 LR IV SOLUTION 1,000 ML IV SCH ×2 (11:06→18:21)
[2018-05-09] MEDS ORDERED: LACTATED RINGERS 1,000 ML IV ONE ×2 (11:17→15:50)
[2018-05-09 11:22] LABS: BASOPHILS % (AUTO) 0 % (0-10); EOSINOPHILS # (AUTO) 0.1 10^3/uL (0.0-0.3); EOSINOPHILS % (AUTO) 1 % (0-10); HEMATOCRIT 44 % (35-52); HEMOGLOBIN 15.1 G/DL (11.5-16.0); LYMPHOCYTES # (AUTO) 1.6 X 10^3 (1.0-4.0); LYMPHOCYTES % (AUTO) 10 % (12-44); MEAN CORPUSCULAR HEMOGLOBIN 30 PG (25-34); MEAN CORPUSCULAR HGB CONC 34 G/DL (32-36); MEAN CORPUSCULAR VOLUME 86 FL (80-99); MEAN PLATELET VOLUME 11.4 FL (7.4-10.4); MONOCYTES # (AUTO) 0.7 X 10^3 (0.0-1.0); MONOCYTES % (AUTO) 4 % (0-12); NEUTROPHILS # (AUTO) 14.2 X 10^3 (1.8-7.8); NEUTROPHILS % (AUTO) 85 % (42-75); PLATELET COUNT 222 10^3/uL (130-400); RED BLOOD COUNT 5.12 10^6/uL (4.35-5.85); RED CELL DISTRIBUTION WIDTH 13.7 % (10.0-14.5); WHITE BLOOD COUNT 16.7 10^3/uL (4.3-11.0)
[2018-05-09] MEDS ORDERED: SUFENTA 0.6MCG/ML BUPIVA 0.125 100 ML ONE (11:27)
[2018-05-09] MEDS ORDERED: fentaNYL INJECTION 100 MCG/2 ML AMP ONE (11:39)
[2018-05-09 11:49] LABS: BAND NEUTROPHILS 4 %; BASOPHILS % (MANUAL) 0 %; EOSINOPHILS % (MANUAL) 0 %; LYMPHOCYTES % (MANUAL) 14 %; MONOCYTES % (MANUAL) 1 %; NEUTROPHILS % (MANUAL) 81 %
[2018-05-09 11:50] LABS: RBC MORPH NORMAL
[2018-05-09] MEDS: EPIDURAL (SUFENTA 0.6MCG/ML BUPIVA 0.125%) 100 ML BAG EPI SCH ×2 (12:01→18:37)
[2018-05-09] MEDS ORDERED: BUPIVACAINE 0.25% 30 ML (SENSORCAINE) VIAL ONE (12:01)
[2018-05-09 12:30] LABS: BILIRUBIN,URINE NEGATIVE (NEGATIVE); CLARITY,URINE CLEAR; COLOR,URINE YELLOW; GLUCOSE, URINE (UA) NEGATIVE (NEGATIVE); KETONES,URINE 1+ (NEGATIVE); LEUKOCYTE ESTERASE ,URINE NEGATIVE (NEGATIVE); NITRITE,URINE NEGATIVE (NEGATIVE); PH,URINE 6.5 (5-9); PROTEIN,URINE NEGATIVE (NEGATIVE); UROBILINOGEN,URINE NORMAL (NORMAL)
[2018-05-09 12:42] LABS: BACTERIA,URINE TRACE /HPF; RBC,URINE RARE /HPF; WBC,URINE 0-2 /HPF
[2018-05-09] MEDS ORDERED: CATHETER FLUSH 10 ML SYR IV SCH ×2 (14:00→22:00)
[2018-05-09] MEDS ORDERED: ALPR0.5T PO (15:13)
[2018-05-09] MEDS ORDERED: OXYTOCIN/NORMAL SALINE 500 ML IV SCH ×2 (15:48→21:43)
[2018-05-09] MEDS ORDERED: SERT50TA2 PO (15:56)
[2018-05-09] MEDS ORDERED: ONDANSETRON 4 MG/2 ML (SDV) Z0FRAN IV PRN (16:00)
[2018-05-09] MEDS ORDERED: NALOXONE 0.4 MG/ML 1 ML (NARCAN) VIAL IV PRN (16:00)
[2018-05-09] MEDS ORDERED: METOCLOPRAMIDE INJ 10 MG/2 ML (REGLAN) IV PRN (16:00)
[2018-05-09] MEDS ORDERED: CATHETER FLUSH 10 ML SYR IV PRN (16:00)
[2018-05-09] MEDS ORDERED: diphenhydrAMINE 50 MG/ML INJ (BENADRYL) IV PRN (16:00)
[2018-05-09] MEDS ORDERED: ALPRAZolam 0.5 MG (XANAX) TAB PO PRN (16:00)
[2018-05-09] MEDS ORDERED: FLU QUADRIvalent (5+ YOA) 2018-2019 (AFLURIA) 0.5 ML IM ONE (16:45)
[2018-05-09] MEDS ORDERED: MEASLES,MUMPS,RUBELLA 1 EA INJ SQ ONE (21:45)
[2018-05-09] MEDS ORDERED: TETANUS,DIPTH,PERTUSS P/F (BOOSTRIX) 0.5 ML VIAL IM ONE (21:45)
[2018-05-09] MEDS ORDERED: BENZOCAINE/MENTHOL (DERMOPLAST) 56 ML CAN TP PRN (21:45)
[2018-05-09] MEDS ORDERED: ACETAMINOPHEN 500 MG TAB (TYLENOL) PO PRN (21:45)
[2018-05-09] MEDS ORDERED: WITCH HAZEL(TUCKS) 40 EA JAR TOP PRN (21:45)
[2018-05-09] MEDS ORDERED: DIBUCAINE (NUPERCAINAL) 1% OINT 30 GM TOP PRN (21:45)
--- NOTE | 2018-05-09 21:47 | OB Labor & Delivery Record ---
Vag Delivery Note Vag Delivery Note Date of Delivery: 05/09/18 Preoperative Diagnosis: Lorena Pedersen is a 32 /Para 9 / 3, Gestational Age 39 weeks, labor Postoperative Diagnosis: Same Surgeon: XAVI VILLALOBOS Anesthesia: epidural Delivery Type: vaginal Findings: Viable male , apgars [], weight [] Lacerations: Intact placenta with 3 vessel cord. tight nuchal cord delivered through, no body cord or shoulder dystocia Estimated Blood Loss: [] ml Complications: None Condition: Stable Description of Procedure: The patient is a 32 /Para 9 / 3,Gestational Age 39 weeks, in spontaneous labor. She was admitted and informed consent was obtained. Her labor course was remarkable for AROM and augmentation. She progressed to complete dilatation and began to push. She was then set up for delivery. The 's head was delivered atraumatically in the [place] position. The shoulders and remainder of the 's body were then delivered without difficulty. Upon delivery, the head was held below the level of the perineum and the mouth and nares were bulb suctioned. The cord was doubly clamped and cut and the infant was handed off to the pediatric staff. An intact placenta with 3-vessel cord delivered via Rosy and there was found to be minimal bleeding.~ Vigorous fundal massage was performed and the fundus was found to be firm. IV oxytocin was given. Examination of the vagina and perineum revealed a no laceration . Following the delivery, sponge, instrument and needle counts were correct. Mom and baby were both in stable condition in the labor suite. Vitals - Labs Vital Signs - I&O Vital Signs Date Time Temp Pulse Resp B/P (MAP) Pulse Ox O2 Delivery O2 Flow Rate FiO2 05/09/18 19:00 97.1 85 18 138/82 (100) 99 Room Air 05/09/18 18:45 76 18 138/90 (106) 100 Room Air 05/09/18 18:30 66 18 124/80 (95) 100 Room Air 05/09/18 18:15 98.0 69 18 124/84 (97) 100 Room Air 05/09/18 18:00 72 18 117/75 (89) 98 Room Air 05/09/18 17:45 69 18 119/81 (94) 100 Room Air 05/09/18 17:30 75 18 132/81 (98) 100 Room Air 05/09/18 17:15 97.4 72 18 122/79 (93) 100 Room Air 05/09/18 17:00 66 18 134/72 (92) 98 Room Air 05/09/18 16:45 63 18 130/78 (95) 99 Room Air 05/09/18 16:30 78 18 123/84 (97) 100 Room Air 05/09/18 16:15 72 18 124/80 (95) 99 Room Air 05/09/18 16:00 66 18 122/77 (92) 99 Room Air 05/09/18 15:45 80 18 115/79 (91) 99 Room Air 05/09/18 15:30 72 18 117/74 (88) 100 Room Air 05/09/18 15:15 59 18 122/74 (90) 100 Room Air 05/09/18 15:00 97.6 84 18 117/84 (95) 100 Room Air 05/09/18 14:45 88 18 113/77 (89) 100 Room Air 05/09/18 14:30 79 18 122/81 (95) 100 Room Air 05/09/18 14:15 97.3 69 18 118/76 (90) 100 Room Air 05/09/18 14:00 75 18 106/72 (83) 97 Room Air 05/09/18 13:45 74 18 118/76 (90) 100 Room Air 05/09/18 13:30 67 18 111/77 (88) 100 Room Air 05/09/18 13:15 76 18 116/80 (92) 100 Room Air 05/09/18 13:00 68 18 119/82 (94) 100 Room Air 05/09/18 12:45 97.4 67 18 120/77 (91) 100 Room Air 05/09/18 12:30 77 18 117/76 (90) 100 Room Air 05/09/18 12:15 95 18 127/83 (98) 100 Room Air 05/09/18 12:01 72 18 129/72 (91) 100 Room Air 05/09/18 12:00 88 18 131/71 (91) Room Air 05/09/18 11:56 98 18 135/68 (90) 100 Room Air 05/09/18 11:54 83 18 128/73 (91) 100 Room Air 05/09/18 11:47 94 18 119/77 (91) 100 Room Air 05/09/18 11:40 69 18 126/97 (107) 100 Room Air 05/09/18 10:09 97.8 75 18 137/77 (97) Room Air Labs Laboratory Tests 05/09/18 11:06: White Blood Count 16.7H, Red Blood Count 5.12, Hemoglobin 15.1, Hematocrit 44, Mean Corpuscular Volume 86, Mean Corpuscular Hemoglobin 30, Mean Corpuscular Hemoglobin Concent 34, Red Cell Distribution Width 13.7, Platelet Count 222, Mean Platelet Volume 11.4H, Neutrophils (%) (Auto) 85H, Lymphocytes (%) (Auto) 10L, Monocytes (%) (Auto) 4, Eosinophils (%) (Auto) 1, Basophils (%) (Auto) 0, Neutrophils # (Auto) 14.2H, Lymphocytes # (Auto) 1.6, Monocytes # (Auto) 0.7, Eosinophils # (Auto) 0.1, Basophils # (Auto) 0.0, Neutrophils % (Manual) 81, Lymphocytes % (Manual) 14, Monocytes % (Manual) 1, Eosinophils % (Manual) 0, Basophils % (Manual) 0, Band Neutrophils 4, Blood Morphology Comment NORMAL 05/09/18 12:01: Urine Color YELLOW, Urine Clarity CLEAR, Urine pH 6.5, Urine Specific [place] 1.010L, Urine Protein NEGATIVE, Urine Glucose (UA) NEGATIVE, Urine Ketones 1+H, Urine Nitrite NEGATIVE, Urine Bilirubin NEGATIVE, Urine Urobilinogen NORMAL, Urine Leukocyte Esterase NEGATIVE, Urine RBC (Auto) NEGATIVE, Urine RBC RARE, Urine WBC 0-2, Urine Squamous Epithelial Cells 5-10, Urine Crystals NONE, Urine Bacteria TRACE, Urine Casts NONE, Urine Mucus SMALLH, Urine Culture Indicated NO XAVI VILLALOBOS DO May 09, 2018 21:47
[2018-05-09] MEDS: IBUPROFEN 600 MG (MOTRIN) TAB PO SCH (23:33)
[2018-05-10] MEDS ORDERED: CALCIUM CARBONATE 500 MG (TUMS) TAB.CHEW ONE ×3 (00:08→14:31)
[2018-05-10] MEDS ORDERED: CALCIUM CARBONATE 500 MG (TUMS) TAB.CHEW PO ONE ×2 (00:15→05:00)
[2018-05-10 05:00] VITALS: BP 120/72
[2018-05-10] MEDS: IBUPROFEN 600 MG (MOTRIN) TAB PO SCH ×3 (06:07→18:38)
[2018-05-10] MEDS ORDERED: SERTRALINE 50 MG (ZOLOFT) TABLET PO NR (06:45)
[2018-05-10] MEDS: ALPRAZolam 0.5 MG (XANAX) TAB PO PRN ×2 (06:47→22:35)
[2018-05-10 07:06] LABS: BASOPHILS % (AUTO) 0 % (0-10); EOSINOPHILS # (AUTO) 0.2 10^3/uL (0.0-0.3); EOSINOPHILS % (AUTO) 2 % (0-10); HEMATOCRIT 32 % (35-52); HEMOGLOBIN 10.7 G/DL (11.5-16.0); LYMPHOCYTES # (AUTO) 1.9 X 10^3 (1.0-4.0); LYMPHOCYTES % (AUTO) 16 % (12-44); MEAN CORPUSCULAR HEMOGLOBIN 30 PG (25-34); MEAN CORPUSCULAR HGB CONC 34 G/DL (32-36); MEAN CORPUSCULAR VOLUME 87 FL (80-99); MEAN PLATELET VOLUME 11.3 FL (7.4-10.4); MONOCYTES # (AUTO) 0.7 X 10^3 (0.0-1.0); MONOCYTES % (AUTO) 6 % (0-12); NEUTROPHILS # (AUTO) 9.2 X 10^3 (1.8-7.8); NEUTROPHILS % (AUTO) 77 % (42-75); PLATELET COUNT 153 10^3/uL (130-400); RED BLOOD COUNT 3.61 10^6/uL (4.35-5.85); RED CELL DISTRIBUTION WIDTH 13.3 % (10.0-14.5)
[2018-05-10] MEDS: FERROUS SULF 325 MG (IRON) TAB PO SCH (09:48)
[2018-05-10] MEDS: PRENATAL VITAMIN 1 EA TAB PO SCH (09:48)
[2018-05-10 09:50] VITALS: BP 119/73
[2018-05-10] MEDS ORDERED: CALCIUM CARBONATE 500 MG (TUMS) TAB.CHEW PO PRN (14:30)
[2018-05-10 16:17] VITALS: BP 101/61
[2018-05-11 00:36] VITALS: BP 108/57
[2018-05-11] MEDS: IBUPROFEN 600 MG (MOTRIN) TAB PO SCH ×4 (00:39→12:15)
[2018-05-11 06:38] VITALS: BP 105/56
[2018-05-11] MEDS ORDERED: ACET-77 PO (06:39)
[2018-05-11] MEDS ORDERED: IBUP-844 PO (06:39)
--- NOTE | 2018-05-11 06:40 | Discharge Inst-Women's Service ---
Discharge Inst-Women's Serv Depart Medication/Instructions New, Converted or Re-Newed RX: RX on Chart Final Diagnosis labor epidural anxiety and depression Consults/Follow Up Additional Follow Up: Yes Activity Activity: Activity as Tolerated Driving Instructions: You May Drive NO SMOKING: NO SMOKING Nothing Inside Vagina: No Douching, No Ambler, No Tampons Diet Discharge Diet: No Restrictions Symptoms to Report to : Bleeding Excessive, Pain Increased, Fever Over 101 Degrees F, Vaginal Bleeding Increase, Cramps in Feet or Legs, Vaginal Discharge Foul For Any Problems or Questions: Contact Your Physician XAVI VILLALOBOS DO May 11, 2018 06:40
[2018-05-11 09:00] VITALS: BP 106/63
[2018-05-11] MEDS: FERROUS SULF 325 MG (IRON) TAB PO SCH (09:05)
[2018-05-11] MEDS: PRENATAL VITAMIN 1 EA TAB PO SCH (09:05)
[2018-05-11 12:00] VITALS: BP 128/72
--- NOTE | 2018-05-11 13:11 | Postpartum Progress Note ---
Note Note Day # 2 s/p Subjective: Patient is without complaints. Ambulating, voiding. Tolerating a regular diet without nausea or vomiting. Normal lochia. Pain is well controlled with oral pain medications. breast feeding. History of chronic anxiety. Was off all meds in early but restarted Zoloft and prn Xanax. Have advised to avoid breast feeding if regularly using xanax. Objective: Laboratory Tests Test 05/09/18 11:06 05/09/18 12:01 05/10/18 06:45 Range/Units White Blood Count 16.7 H 12.0 H 4.3-11.0 10^3/uL Red Blood Count 5.12 3.61 L 4.35-5.85 10^6/uL Hemoglobin 15.1 10.7 #L 11.5-16.0 G/DL Hematocrit 44 32 L 35-52 % Mean Corpuscular Volume 86 87 80-99 FL Mean Corpuscular Hemoglobin 30 30 25-34 PG Mean Corpuscular Hemoglobin Concent 34 34 32-36 G/DL Red Cell Distribution Width 13.7 13.3 10.0-14.5 % Platelet Count 222 153 130-400 10^3/uL Mean Platelet Volume 11.4 H 11.3 H 7.4-10.4 FL Neutrophils (%) (Auto) 85 H 77 H 42-75 % Lymphocytes (%) (Auto) 10 L 16 12-44 % Monocytes (%) (Auto) 4 6 0-12 % Eosinophils (%) (Auto) 1 2 0-10 % Basophils (%) (Auto) 0 0 0-10 % Neutrophils # (Auto) 14.2 H 9.2 H 1.8-7.8 X 10^3 Lymphocytes # (Auto) 1.6 1.9 1.0-4.0 X 10^3 Monocytes # (Auto) 0.7 0.7 0.0-1.0 X 10^3 Eosinophils # (Auto) 0.1 0.2 0.0-0.3 10^3/uL Basophils # (Auto) 0.0 0.0 0.0-0.1 10^3/uL Neutrophils % (Manual) 81 % Lymphocytes % (Manual) 14 % Monocytes % (Manual) 1 % Eosinophils % (Manual) 0 % Basophils % (Manual) 0 % Band Neutrophils 4 % Blood Morphology Comment NORMAL Urine Color YELLOW Urine Clarity CLEAR Urine pH 6.5 5-9 Urine Specific [place] 1.010 L 1.016-1.022 Urine Protein NEGATIVE NEGATIVE Urine Glucose (UA) NEGATIVE NEGATIVE Urine Ketones 1+ H NEGATIVE Urine Nitrite NEGATIVE NEGATIVE Urine Bilirubin NEGATIVE NEGATIVE Urine Urobilinogen NORMAL NORMAL MG/DL Urine Leukocyte Esterase NEGATIVE NEGATIVE Urine RBC (Auto) NEGATIVE NEGATIVE Urine RBC RARE /HPF Urine WBC 0-2 /HPF Urine Squamous Epithelial Cells 5-10 /HPF Urine Crystals NONE /LPF Urine Bacteria TRACE /HPF Urine Casts NONE /LPF Urine Mucus SMALL H /LPF Urine Culture Indicated NO 05/11/18 06:38 Temp 97.0 Pulse 55 Resp 18 B/P (MAP) 105/56 (72) Pulse Ox 97 Physical Exam: General - Alert and oriented, no apparent distress Abdomen - Soft, appropriately tender to palpation, non-distended, fundus firm at umbilicus Extremities - no edema, negative Sanchez's bilaterally Assessment: 1. post- day # 2, status post vaginal delivery. Recovering well, hemodynamically stable Plan: Routine care. Encourage breast feeding. Encourage ambulation. Ferrous sulfate supplementation. Plan for discharge today Vitals - Labs Vital Signs - I&O Vital Signs Date Time Temp Pulse Resp B/P (MAP) Pulse Ox O2 Delivery O2 Flow Rate FiO2 05/11/18 06:38 97.0 55 18 105/56 (72) 97 05/11/18 00:36 98.6 84 18 108/57 (74) 96 05/10/18 16:17 98.1 65 18 101/61 (74) 99 Room Air XAVI VILLALOBOS DO May 11, 2018 13:11
[2018-05-11] MEDS ORDERED: TETANUS,DIPTH,PERTUSS P/F (BOOSTRIX) 0.5 ML VIAL IM ONE (13:52)
--- NOTE | 2018-05-11 13:55 | Anesthesia-Regional Post-Op ---
Regional Patient Condition Mental Status: Alert, Oriented x3 Circulation: Same as Pre-Op Headache: Absent Sensation: Full Recovery Motor Block: Absent Post Op Complications Complications None Follow Up Care/Instructions Patient Instructions None needed. Anesthesia/Patient Condition Patient is doing well, no complaints, stable vital signs, no apparent adverse anesthesia problems. She did have some residual numbness in her right leg, but now it is minimal tingling over the right knee only. She is ready for discharge to home. CRISTAL SIMPSON DO May 11, 2018 13:55
== END 2018-05-11 14:20 | disposition home or self-care (01) | DRG 807 ==
LOC: WSo 10:13 → LDRP 10:14 → WSo 10:33 → LDRP 10:34
PROVIDERS: ADMIT Obstetrics & Gynecology; ATTEND Obstetrics & Gynecology
PROC: 10E0XZZ Delivery of Products of Conception, External Approach (ICD-10-PCS; principal; 2018-05-09)
DX: O99.344 Other mental disorders complicating childbirth (principal); F41.9 Anxiety disorder, unspecified; O69.81X0 Labor and delivery complicated by cord around neck, without compression, not applicable or unspecified; O99.334 Smoking (tobacco) complicating childbirth; F17.210 Nicotine dependence, cigarettes, uncomplicated; Z3A.39 39 weeks gestation of pregnancy; Z37.0 Single live birth
CPT/HCPCS: 36415; 81000; 85007; 85025; 85027; 86850; 86900; 86901; 90715; 99212